=== PATIENT | female | born 1930 | race African-American/Black ===

== ENCOUNTER 2020-07-15 17:23 | Inpatient (IN) ==
[2020-07-15] MEDS ORDERED: PANTOPRAZOLE 40 MG VIAL IV STA (18:14)
[2020-07-15] MEDS ORDERED: ONDANSETRON 4 MG/2 ML VIAL IV STA (18:14)
[2020-07-15] MEDS ORDERED: SODIUM CHLORIDE 0.9% 500 ML IV STA (18:14)
[2020-07-15 19:21] LABS: Basophils % 0.2 % (0.0-0.8); Eosinophils % 0.1 % (0.00-10.9); Hematocrit 28.2 VOL% (35.7-47.0); Hemoglobin 8.9 GM/DL (12.0-16.0); Immature Granulocytes % 1.1 %; Immature Granulocytes Absolute 0.11 #; Lymphocytes # 0.6 10*3/uL (1.4-4.0); Lymphocytes % 5.9 % (21.3-54.2); Mean Corpuscular HGB Conc 31.6 GM/DL (32-36); Mean Corpuscular Volume 86.8 FL (87-102); Mean Platelet Volume 11.3 FL (9.6-12.0); Monocytes % 5.9 % (1.7-12.7); NRBC # 0.04 10*3/uL; Neutrophils % 86.8 % (38.7-73.9); Platelet Count 217 T/CUMM (130-400); Red Blood Count 3.25 MC/CUMM (3.8-5.5); Red Cell Distribution Width 14.6 % (9.3-17.3); White Blood Count 9.6 T/CUMM (4-12)
[2020-07-15 19:52] LABS: Alanine Aminotransferase 192 U/L (13-56); Albumin 2.4 G/DL (3.4-5.0); Alkaline Phosphatase 43 U/L (45-117); Amylase 106 U/L (25-115); Aspartate Amino Transferase 265 U/L (0-37); Bilirubin,Total < 0.39 MG/DL (0.2-1.0); Blood Urea Nitrogen 166 MG/DL (7-18); Estimated Glom Filtration Rate 2 ML/MIN; Glucose 132 MG/DL (74-106); Total Protein 5.6 G/DL (6.4-8.3)
[2020-07-15 19:53] LABS: Calcium 5.7 MG/DL (8.5-10.1)
[2020-07-15] MEDS ORDERED: CALCIUM CHLORIDE 1,000 MG/10 ML SYRINGE IV STA (19:54)
[2020-07-15] MEDS ORDERED: SODIUM BICARBONATE 50 MEQ/50 ML VIAL IV STA (19:56)
[2020-07-15] MEDS ORDERED: SODIUM CHLORIDE 0.9% 1,000 ML IV STA (19:56)
[2020-07-15 20:03] LABS: Burr Cells 2+; Lymphocytes 11 % (20-55); Segmented Neutrophils 85 % (50-85); Total Cells Counted 100
[2020-07-15 20:04] LABS: Platelet Estimate Normal; Polychromasia 1+; Toxic Granulation 1+
[2020-07-15 20:14] LABS: Allen Test Positive
[2020-07-15 20:16] LABS: ABG Base Excess -15.4 MMOL/L (-2.5-2.5); ABG Oxygen Saturation 69.6 % (95-100); ABG PCO2 29.2 MM HG (35-48); ABG PO2 50.8 MM HG (80-95); ABG TCO2 11.4 MMOL/L (23-27)
[2020-07-15 20:18] LABS: ABG PH 7.202 (7.35-7.45)
[2020-07-15] MEDS ORDERED: PIPERACILLIN/TAZOBACTAM 2,250 MG in SODIUM CHLORIDE 0.9% 100 ML IV STA (21:06)
[2020-07-15 21:07] LABS: Bilirubin,Urine Negative (Negative); Blood, Urine Large mg/dL (Negative); Glucose,Urine (UA) 50 mg/dL (Negative); Hyaline Casts,Urine 17 /LPF (0-3); Ketones,Urine Negative (Negative); Nitrite,Urine Negative (Negative); Protein,Urine 100 MG/DL; Squamous Epithelial Cell,Urine Occasional /HPF (0-10); Urine Appearance CLOUDY (Clear); Urine Color Amber (Yellow); Urine Specific Gravity 1.021 (1.001-1.035); Urine Urobilinogen < 2.0 EU/DL (0.2-1.0); WBC,Urine 9 /HPF (0-6)
[2020-07-15 21:08] LABS: ABG Base Excess -13.4 MMOL/L (-2.5-2.5); ABG HCO3 13.6 MMOL/L (20-26); ABG Oxygen Saturation 91.6 % (95-100); ABG PCO2 29.8 MM HG (35-48); ABG PH 7.245 (7.35-7.45); ABG PO2 78.9 MM HG (80-95); ABG TCO2 12.7 MMOL/L (23-27); Allen Test Positive
[2020-07-15] MEDS ORDERED: PIPERACILLIN/TAZOBACTAM 3,375 MG in SODIUM CHLORIDE 0.9% 100 ML IV STA (21:11)
[2020-07-15] MEDS ORDERED: ONDANSETRON 4 MG/2 ML VIAL IV PRN (21:40)
[2020-07-15] MEDS ORDERED: ALBUTEROL 2.5 MG/3 ML NEB RESP TX PRN (21:40)
[2020-07-15] MEDS ORDERED: PROMETHAZINE 25 MG/1 ML VIAL IM PRN (21:40)
[2020-07-15] MEDS ORDERED: LEVOFLOXACIN INJ 500 MG in PREMIX 1 EACH IV STA (21:43)
[2020-07-15 21:56] LABS: INR 1.2; PT Patient Result 12.8 SECS (9.8-11.9); Partial Thromboplastin Time 25.9 SECS (23.9-33.8)
[2020-07-15] MEDS ORDERED: SODIUM CHLORIDE 0.9% 1,000 ML IV SCH (22:00)
[2020-07-15] MEDS ORDERED: SODIUM BICARBONATE 50 MEQ/50 ML SYRINGE IV ONE (22:02)
[2020-07-15] MEDS ORDERED: EPINEPHrine 1 MG/10 ML SYRINGE ONE (22:02)
[2020-07-15] MEDS ORDERED: PHENYLEPHRINE DRIP 40 MG/250 ML PREMIX IV PRN (22:42)
[2020-07-15] MEDS ORDERED: NOREPINEPHRINE 4 MG/4 ML VIAL IV ONE (22:42)
[2020-07-15 22:43] LABS: Immature Granulocytes % 3.8 %; Immature Granulocytes Absolute 0.11 #; Lymphocytes # 0.7 10*3/uL (1.4-4.0); Lymphocytes % 22.8 % (21.3-54.2); Mean Corpuscular HGB Conc 29.3 GM/DL (32-36); Mean Corpuscular Volume 94.9 FL (87-102); Mean Platelet Volume 11.2 FL (9.6-12.0); Monocytes % 1.7 % (1.7-12.7); NRBC # 0.07 10*3/uL; Neutrophils % 71.7 % (38.7-73.9); Platelet Count 206 T/CUMM (130-400); Red Blood Count 1.58 MC/CUMM (3.8-5.5); White Blood Count 2.9 T/CUMM (4-12)
[2020-07-15 22:55] LABS: Hemoglobin 4.4 GM/DL (12.0-16.0)
[2020-07-15] MEDS ORDERED: SODIUM BICARB INJ 150 MEQ in STERILE WATER INJ 1,000 ML IV SCH (23:00)
[2020-07-15 23:17] LABS: Lymphocytes 34 % (20-55); Platelet Estimate Normal; Segmented Neutrophils 60 % (50-85); Total Cells Counted 100
[2020-07-15 23:18] LABS: Hypochromasia 2+
[2020-07-15 23:37] LABS: Albumin 1.5 G/DL (3.4-5.0); Bilirubin,Total 0.8 MG/DL (0.2-1.0); Calcium 8.1 MG/DL (8.5-10.1); Osmolality,Calculated 345.1 MOS/KG (273-304); Total Protein 4.6 G/DL (6.4-8.3)
[2020-07-16] MEDS ORDERED: VANCOMYCIN INJ 500 MG in SODIUM CHLORIDE 0.9% 100 ML IV PRN (00:32)
[2020-07-16] MEDS ORDERED: VANCOMYCIN INJ 1,500 MG in SODIUM CHLORIDE 0.9% 500 ML IV ONE (02:00)
[2020-07-16 02:50] VITALS: BP 182/73
[2020-07-16] MEDS ORDERED: PANTOPRAZOLE 40 MG VIAL IV SCH (09:00)
[2020-07-17] MEDS ORDERED: LEVOFLOXACIN INJ 250 MG in PREMIX 1 EACH IV SCH (21:00)
== END 2020-07-15 23:02 | disposition expired | DRG 871 ==
LOC: EDBD → EDUNIT# → N.ED 17:23 → SUATTDRO 21:40 → N.EDINP 21:40
PROVIDERS: ADMIT Internal Medicine; ATTEND Internal Medicine